=== PATIENT | female | born 1990 | race African-American/Black ===

== ENCOUNTER 2018-03-17 20:31 | Emergency (ER) | payer OTHER | END 2018-03-17 21:35 | disposition home or self-care (01) | LOC: ER 20:31 | DX: S00.93XA Contusion of unspecified part of head, initial encounter (principal); J45.909 Unspecified asthma, uncomplicated; W22.8XXA Striking against or struck by other objects, initial encounter; Y93.89 Activity, other specified; Y99.8 Other external cause status; Y92.89 Other specified places as the place of occurrence of the external cause | CPT/HCPCS: 99281 ==

== ENCOUNTER 2018-03-19 18:27 | Emergency (ER) | payer OTHER ==
[2018-03-19] MEDS: KETOROLAC 30 MG/ML INJ. IV (20:30)
[2018-03-19] MEDS: IV NORMAL SALINE 1000ML BAG 1,000 ML IV (20:30)
[2018-03-19] MEDS: METOCLOPRAMIDE HCL 10 MG/2 ML VIAL. IV (20:30)
[2018-03-19 21:10] LABS: NEG OBC UR NEG; POS OBC UR POS; U PREG PATIENT NEGATIVE (NEG)
== END 2018-03-19 22:39 | disposition home or self-care (01) ==
LOC: ER 18:27
DX: S16.1XXA Strain of muscle, fascia and tendon at neck level, initial encounter (principal); S09.90XA Unspecified injury of head, initial encounter; J45.909 Unspecified asthma, uncomplicated; W20.8XXA Other cause of strike by thrown, projected or falling object, initial encounter; Y93.89 Activity, other specified; Y99.8 Other external cause status; Y92.002 Bathroom of unspecified non-institutional (private) residence as the place of occurrence of the external cause
CPT/HCPCS: 70450; 72125; 81025; 96361; 96374; 96375; 99285-25; J1885; J2765; J7030